=== PATIENT | male | born 2000 | race African-American/Black ===

== ENCOUNTER 2021-09-28 19:10 | Inpatient (IN) | payer OTHER ==
[2021-09-28 22:17] LABS: BASO % 0.3 % (0-2.0); EOS % 1.1 % (0-4.5); HEMATOCRIT 35.5 % (35.4-49); HEMOGLOBIN 11.1 GM/dL (11.7-16.9); LYMPH % 18.6 % (8-40); MCHC 31.3 g/dl (32.0-35.9); MEAN CELL VOLUME 76.8 fl (80-96); MEAN PLT VOLUME 7.3 fl (7.5-11.1); MONO % 5.1 % (3.8-10.2); NEUT % 74.9 % (42.8-82.8); PLATELET COUNT 553 10^3/uL (134-434); RBC 4.62 M/mm3 (4.00-5.60); RDW 18.1 % (11.9-15.9)
[2021-09-28 22:19] LABS: EPI CELLS >36 /uL (0-25.1); HYALINE CASTS 225 /uL (0-3.1); PH,URINE 8.5 (5.0-8.0); URINE APPEARANCE TURBID; URINE BACTERIA 7552 /uL (0-1359); URINE BILIRUBIN NEGATIVE (NEGATIVE); URINE COLOR YELLOW; URINE GLUCOSE (UA) NEGATIVE (NEGATIVE); URINE KETONE NEGATIVE (NEGATIVE); URINE LEUK ESTERASE 3+ (NEGATIVE); URINE NITRITE POSITIVE (NEGATIVE); URINE PROTEIN 2+ (NEGATIVE); URINE WBC 13008 /uL (0-25.8)
[2021-09-28] MEDS ORDERED: VANCOMYCIN 1 GM in D5W (PRE-DOCKED) 1,000 MG/250 ML IVPB ONE (22:31)
[2021-09-28] MEDS ORDERED: PIPERACILLIN/TAZOB 4.5 GM 4.5 GM in DEXTROSE 5%-WATER 100 ML IVPB ONE (22:31)
[2021-09-28 22:33] LABS: BLOOD UREA NITROGEN 12.8 mg/dL (7-18)
[2021-09-28 22:36] LABS: CREATININE 0.4 mg/dL (0.55-1.3)
[2021-09-28 22:37] LABS: TOT PROT 10.3 g/dl (6.4-8.2)
[2021-09-28 22:38] LABS: BILIRUBIN,TOTAL 0.3 mg/dL (0.2-1)
[2021-09-28 22:56] LABS: URINE CRYSTALS MANY /hpf; URINE RBC 499.8 /uL (0-23.9); YEAST NONE SEEN (NEGATIVE)
[2021-09-28 23:51] LABS: INR 1.22 (0.83-1.09); PROTHROMBIN TIME (PATIENT) 14.1 SEC (9.7-13.0)
[2021-09-28 23:54] LABS: ACTIVATED PTT 34.8 SECONDS (25.2-36.5)
[2021-09-29] MEDS ORDERED: PIPERACILLIN/TAZOB 4.5 GM 4.5 GM/100 ML BAG IVPB ONE (01:48)
[2021-09-29] MEDS ORDERED: VANCOMYCIN 1 GRAM (PRE-DOCKED) 1,000 MG/250 ML BAG IVPB ONE (01:49)
[2021-09-29 07:58] LABS: BASO % 0.6 % (0-2.0); EOS % 1.8 % (0-4.5); HEMATOCRIT 31.1 % (35.4-49); HEMOGLOBIN 9.8 GM/dL (11.7-16.9); LYMPH % 27.9 % (8-40); MCH 24.3 pg (25.7-33.7); MCHC 31.7 g/dl (32.0-35.9); MEAN CELL VOLUME 76.8 fl (80-96); MEAN PLT VOLUME 7.2 fl (7.5-11.1); MONO % 6.1 % (3.8-10.2); NEUT % 63.6 % (42.8-82.8); PLATELET COUNT 519 10^3/uL (134-434); RBC 4.05 M/mm3 (4.00-5.60); RDW 17.1 % (11.9-15.9); WHITE BLOOD COUNT 10.1 K/mm3 (4.0-10.0)
[2021-09-29 08:14] LABS: CALCIUM 8.8 mg/dL (8.5-10.1)
[2021-09-29 08:15] LABS: ALBUMIN 2.6 g/dl (3.4-5.0); BLOOD UREA NITROGEN 9.1 mg/dL (7-18)
[2021-09-29 08:18] LABS: CREATININE 0.4 mg/dL (0.55-1.3); PHOSPHOROUS 3.6 mg/dL (2.5-4.9)
[2021-09-29 08:19] LABS: BILIRUBIN,TOTAL 0.3 mg/dL (0.2-1)
[2021-09-29] MEDS ORDERED: DEXTROSE 5%-WATER - 50 ML IVPB ONE (12:12)
[2021-09-29] MEDS ORDERED: cefTRIAXone SODIUM 1 GM VIAL ONE (12:12)
[2021-09-29] MEDS: ENOXAPARIN NA (PORCINE) 40 MG/0.4 ML DISP.SYRIN SQ SCH (12:36)
[2021-09-29] MEDS: CEFTRIAXONE 1 GM in DEXTROSE 5%-WATER - 50 ML IVPB SCH (12:39)
[2021-09-29] MEDS ORDERED: SENNOSIDES 8.6MG TABLET (FP) PO PRN (16:06)
[2021-09-29] MEDS ORDERED: POLYETHYLENE GLYCOL (HEALTHYLAX) 3350 17 GM PACKET PO PRN (16:06)
[2021-09-29] MEDS ORDERED: ACETAMINOPHEN 325 MG TABLET (FP) PO PRN (16:58)
[2021-09-29] MEDS: SODIUM CHLORIDE 1,000 ML IV SCH (18:46)
[2021-09-29] MEDS: AMINO ACIDS/PROTEIN HYDROLYS 30 ML LIQUID.PKT PO SCH (18:47)
[2021-09-30] MEDS: AMINO ACIDS/PROTEIN HYDROLYS 30 ML LIQUID.PKT PO SCH ×3 (09:08→17:09)
[2021-09-30 09:45] LABS: BASO % 0.3 % (0-2.0); EOS % 2.7 % (0-4.5); HEMATOCRIT 26.9 % (35.4-49); HEMOGLOBIN 8.3 GM/dL (11.7-16.9); MCH 23.9 pg (25.7-33.7); MCHC 30.9 g/dl (32.0-35.9); MEAN CELL VOLUME 77.3 fl (80-96); MEAN PLT VOLUME 7.7 fl (7.5-11.1); MONO % 9.2 % (3.8-10.2); NEUT % 60.8 % (42.8-82.8); PLATELET COUNT 445 10^3/uL (134-434); RBC 3.48 M/mm3 (4.00-5.60); RDW 17.1 % (11.9-15.9); WHITE BLOOD COUNT 8.8 K/mm3 (4.0-10.0)
[2021-09-30 09:59] LABS: CALCIUM 8.3 mg/dL (8.5-10.1)
[2021-09-30 10:00] LABS: ALBUMIN 2.2 g/dl (3.4-5.0); BLOOD UREA NITROGEN 8.5 mg/dL (7-18); MAGNESIUM 1.9 mg/dL (1.8-2.4)
[2021-09-30 10:02] LABS: CREATININE 0.2 mg/dL (0.55-1.3)
[2021-09-30 10:03] LABS: PHOSPHOROUS 3.2 mg/dL (2.5-4.9)
[2021-09-30 10:04] LABS: TOT PROT 7.5 g/dl (6.4-8.2)
[2021-09-30] MEDS ORDERED: cefTRIAXone SODIUM 1 GM VIAL ONE (10:12)
[2021-09-30] MEDS ORDERED: DEXTROSE 5%-WATER - 50 ML IVPB ONE (10:12)
[2021-09-30] MEDS: ZINC SULFATE 220 MG CAPSULE (FP) PO SCH (10:15)
[2021-09-30] MEDS: MULTIVITAMINS (DAILY MVI) TABLET (FP) PO SCH (10:16)
[2021-09-30] MEDS: ASCORBIC ACID 500 MG TABLET (FP) PO SCH (10:16)
[2021-09-30] MEDS: ENOXAPARIN NA (PORCINE) 40 MG/0.4 ML DISP.SYRIN SQ SCH (10:16)
[2021-09-30] MEDS: CEFTRIAXONE 1 GM in DEXTROSE 5%-WATER - 50 ML IVPB SCH (10:16)
[2021-09-30 10:17] LABS: BILIRUBIN,TOTAL 0.4 mg/dL (0.2-1)
[2021-09-30] MEDS: SODIUM CHLORIDE 1,000 ML IV SCH (17:13)
[2021-10-01] MEDS: SODIUM CHLORIDE 1,000 ML IV SCH ×2 (05:29→17:32)
[2021-10-01] MEDS: AMINO ACIDS/PROTEIN HYDROLYS 30 ML LIQUID.PKT PO SCH ×3 (08:53→17:33)
[2021-10-01] MEDS ORDERED: SULFAMETHOXAZOLE/TRIMETHOPRIM 800MG/160MG D.S. TABLET PO SCH (10:32)
[2021-10-01 10:37] LABS: HEMATOCRIT 28.6 % (35.4-49); HEMOGLOBIN 8.8 GM/dL (11.7-16.9); MCH 23.9 pg (25.7-33.7); MCHC 30.8 g/dl (32.0-35.9); MEAN CELL VOLUME 77.6 fl (80-96); MEAN PLT VOLUME 7.4 fl (7.5-11.1); PLATELET COUNT 451 10^3/uL (134-434); RBC 3.68 M/mm3 (4.00-5.60); RDW 16.9 % (11.9-15.9); WHITE BLOOD COUNT 6.1 K/mm3 (4.0-10.0)
[2021-10-01] MEDS: CEFTRIAXONE 1 GM in DEXTROSE 5%-WATER - 50 ML IVPB SCH (10:46)
[2021-10-01] MEDS ORDERED: AMOX TR/POT CLAV 875MG/125MG TABLETS (FP) PO SCH ×2 (10:48→17:30)
[2021-10-01] MEDS: FERROUS SO4 325 MG TABLET (FP) PO SCH (10:56)
[2021-10-01] MEDS: MULTIVITAMINS (DAILY MVI) TABLET (FP) PO SCH (10:56)
[2021-10-01] MEDS: ASCORBIC ACID 500 MG TABLET (FP) PO SCH (10:56)
[2021-10-01] MEDS: ENOXAPARIN NA (PORCINE) 40 MG/0.4 ML DISP.SYRIN SQ SCH (10:56)
[2021-10-01] MEDS: ZINC SULFATE 220 MG CAPSULE (FP) PO SCH (10:57)
[2021-10-01 11:05] LABS: CHLORIDE 103 mmol/L (98-107); SODIUM 139 mmol/L (136-145)
[2021-10-01 11:06] LABS: CALCIUM 8.7 mg/dL (8.5-10.1)
[2021-10-01 11:07] LABS: ALBUMIN 2.2 g/dl (3.4-5.0); ANION GAP 6 MMOL/L (8-16); BLOOD UREA NITROGEN 3.6 mg/dL (7-18); CO2 29 mmol/L (21-32); GLUCOSE,RANDOM 108 mg/dL (74-106); MAGNESIUM 1.9 mg/dL (1.8-2.4)
[2021-10-01 11:10] LABS: CREATININE 0.3 mg/dL (0.55-1.3); PHOSPHOROUS 3.2 mg/dL (2.5-4.9); SGOT/AST 9 U/L (15-37); SGPT/ALT < 6 U/L (13-61)
[2021-10-01 11:11] LABS: BILIRUBIN,TOTAL 0.2 mg/dL (0.2-1); TOT PROT 7.7 g/dl (6.4-8.2)
[2021-10-01 11:13] LABS: ALK PHOS 114 U/L (45-117)
[2021-10-01] MEDS ORDERED: CEFTRIAXONE 1 GM in DEXTROSE 5%-WATER - 50 ML IVPB SCH (11:45)
[2021-10-01] MEDS ORDERED: DEXTROSE 5%-WATER - 50 ML IVPB ONE (12:56)
[2021-10-01] MEDS ORDERED: cefTRIAXone SODIUM 1 GM VIAL ONE (12:56)
[2021-10-02] MEDS: AMINO ACIDS/PROTEIN HYDROLYS 30 ML LIQUID.PKT PO SCH ×3 (08:34→18:03)
[2021-10-02 08:55] LABS: HEMATOCRIT 26.7 % (35.4-49); HEMOGLOBIN 8.6 GM/dL (11.7-16.9); MCH 24.3 pg (25.7-33.7); MCHC 32.1 g/dl (32.0-35.9); MEAN CELL VOLUME 75.6 fl (80-96); MEAN PLT VOLUME 6.9 fl (7.5-11.1); PLATELET COUNT 490 10^3/uL (134-434); RBC 3.54 M/mm3 (4.00-5.60); RDW 17.2 % (11.9-15.9); WHITE BLOOD COUNT 4.9 K/mm3 (4.0-10.0)
[2021-10-02 09:15] LABS: ALBUMIN 2.2 g/dl (3.4-5.0); CALCIUM 8.5 mg/dL (8.5-10.1)
[2021-10-02 09:16] LABS: BLOOD UREA NITROGEN 4.5 mg/dL (7-18)
[2021-10-02 09:18] LABS: PHOSPHOROUS 3.1 mg/dL (2.5-4.9)
[2021-10-02 09:19] LABS: CREATININE 0.2 mg/dL (0.55-1.3)
[2021-10-02 09:20] LABS: BILIRUBIN,TOTAL 0.2 mg/dL (0.2-1); TOT PROT 7.8 g/dl (6.4-8.2)
[2021-10-02] MEDS: AMOX TR/POT CLAV 875MG/125MG TABLETS (FP) PO SCH ×2 (09:56→18:04)
[2021-10-02] MEDS: ZINC SULFATE 220 MG CAPSULE (FP) PO SCH (09:56)
[2021-10-02] MEDS: MULTIVITAMINS (DAILY MVI) TABLET (FP) PO SCH (09:57)
[2021-10-02] MEDS: ASCORBIC ACID 500 MG TABLET (FP) PO SCH (09:57)
[2021-10-02] MEDS: ENOXAPARIN NA (PORCINE) 40 MG/0.4 ML DISP.SYRIN SQ SCH (09:57)
[2021-10-02] MEDS ORDERED: SULFAMETHOXAZOLE/TRIMETHOPRIM 800MG/160MG D.S. TABLET PO SCH (10:00)
[2021-10-02 14:08] VITALS: BMI 15.0
[2021-10-02] MEDS: SODIUM CHLORIDE 1,000 ML IV SCH (18:03)
[2021-10-03] MEDS: MULTIVITAMINS (DAILY MVI) TABLET (FP) PO SCH (10:43)
[2021-10-03] MEDS: ZINC SULFATE 220 MG CAPSULE (FP) PO SCH (10:43)
[2021-10-03] MEDS: ASCORBIC ACID 500 MG TABLET (FP) PO SCH (10:43)
[2021-10-03] MEDS: ENOXAPARIN NA (PORCINE) 40 MG/0.4 ML DISP.SYRIN SQ SCH (10:43)
[2021-10-03] MEDS: AMOX TR/POT CLAV 875MG/125MG TABLETS (FP) PO SCH ×2 (10:43→18:00)
[2021-10-03] MEDS: AMINO ACIDS/PROTEIN HYDROLYS 30 ML LIQUID.PKT PO SCH ×3 (10:44→18:00)
[2021-10-04] MEDS: AMOX TR/POT CLAV 875MG/125MG TABLETS (FP) PO SCH ×2 (08:20→17:22)
[2021-10-04] MEDS: AMINO ACIDS/PROTEIN HYDROLYS 30 ML LIQUID.PKT PO SCH ×4 (08:20→17:22)
[2021-10-04] MEDS: ENOXAPARIN NA (PORCINE) 40 MG/0.4 ML DISP.SYRIN SQ SCH (09:13)
[2021-10-04] MEDS: ASCORBIC ACID 500 MG TABLET (FP) PO SCH (09:13)
[2021-10-04] MEDS: MULTIVITAMINS (DAILY MVI) TABLET (FP) PO SCH (09:13)
[2021-10-04] MEDS: ZINC SULFATE 220 MG CAPSULE (FP) PO SCH (09:13)
[2021-10-04] MEDS: FERROUS SO4 325 MG TABLET (FP) PO SCH (09:15)
[2021-10-04 09:46] LABS: HEMATOCRIT 31.5 % (35.4-49); HEMOGLOBIN 9.8 GM/dL (11.7-16.9); MCH 23.6 pg (25.7-33.7); MCHC 31.1 g/dl (32.0-35.9); MEAN CELL VOLUME 76.1 fl (80-96); MEAN PLT VOLUME 6.9 fl (7.5-11.1); PLATELET COUNT 549 10^3/uL (134-434); RBC 4.14 M/mm3 (4.00-5.60); RDW 17.5 % (11.9-15.9); WHITE BLOOD COUNT 5.9 K/mm3 (4.0-10.0)
[2021-10-04 10:19] LABS: BLOOD UREA NITROGEN 7.4 mg/dL (7-18)
[2021-10-04 10:22] LABS: CREATININE 0.3 mg/dL (0.55-1.3)
[2021-10-05 05:45] VITALS: BP 110/62; PULSE 97; TEMP 98
== END 2021-10-05 05:55 | disposition home or self-care (01) | DRG 463 ==
LOC: JER 19:10 → JERBED 19:56 → J8W 09-29 08:41
PROVIDERS: ADMIT Internal Medicine; ATTEND Internal Medicine
DX: N39.0 Urinary tract infection, site not specified (principal); L89.153 Pressure ulcer of sacral region, stage 3; B96.4 Proteus (mirabilis) (morganii) as the cause of diseases classified elsewhere; E43 Unspecified severe protein-calorie malnutrition; R64 Cachexia; Z68.1 Body mass index [BMI] 19.9 or less, adult; G82.20 Paraplegia, unspecified; E88.09 Other disorders of plasma-protein metabolism, not elsewhere classified; R32 Unspecified urinary incontinence; R00.0 Tachycardia, unspecified; E86.0 Dehydration; D50.9 Iron deficiency anemia, unspecified; S30.812A Abrasion of penis, initial encounter; L89.893 Pressure ulcer of other site, stage 3; L89.523 Pressure ulcer of left ankle, stage 3; Z74.01 Bed confinement status; X58.XXXA Exposure to other specified factors, initial encounter; Y92.89 Other specified places as the place of occurrence of the external cause
CPT/HCPCS: 36415; 71045-TC-FY; 80048; 80053; 81003; 82607; 82728; 82747; 83540; 83550; 83605; 83735; 84100; 84155; 84165; 85014; 85025; 85027; 85610; 85730; 87040; 87086; 87186; 87536; 93005; 93010; 93971-TC; 99285-25; C9803-CS; U0003; U0005

== ENCOUNTER 2022-04-13 19:54 | Emergency (ER) | payer OTHER ==
[2022-04-13 20:32] VITALS: RESP 18; BMI 16.7
[2022-04-13 21:35] LABS: BASO % 0.5 % (0-2.0); EOS % 1.7 % (0-4.5); HEMATOCRIT 41.1 % (35.4-49); HEMOGLOBIN 12.9 GM/dL (11.7-16.9); LYMPH % 39.7 % (8-40); MCH 25.3 pg (25.7-33.7); MCHC 31.4 g/dl (32.0-35.9); MEAN CELL VOLUME 80.6 fl (80-96); MONO % 8.6 % (3.8-10.2); NEUT % 49.5 % (42.8-82.8); PLATELET COUNT 422 10^3/uL (134-434); RDW 15.7 % (11.9-15.9); WHITE BLOOD COUNT 6.3 K/mm3 (4.0-10.0)
[2022-04-13 21:43] LABS: INR 1.19 (0.83-1.09); PROTHROMBIN TIME (PATIENT) 13.7 SEC (9.7-13.0)
[2022-04-13 21:46] LABS: ACTIVATED PTT 32.1 SECONDS (25.2-36.5)
[2022-04-13 22:23] LABS: CHLORIDE 104 mmol/L (98-107); SODIUM 140 mmol/L (136-145)
[2022-04-13 22:25] LABS: CALCIUM 9.1 mg/dL (8.5-10.1)
[2022-04-13 22:26] LABS: ALBUMIN 3.1 g/dl (3.4-5.0); BLOOD UREA NITROGEN 13.2 mg/dL (7-18); CO2 30 mmol/L (21-32); GLUCOSE,RANDOM 85 mg/dL (74-106)
[2022-04-13 22:29] LABS: CREATININE 0.5 mg/dL (0.55-1.3)
[2022-04-13 22:30] LABS: TOT PROT 8.8 g/dl (6.4-8.2)
[2022-04-13 22:31] LABS: ALK PHOS 132 U/L (45-117)
[2022-04-13 22:54] LABS: ANION GAP 6 MMOL/L (8-16); SGOT/AST 137 U/L (15-37); SGPT/ALT 21 U/L (13-61)
[2022-04-13 23:41] LABS: BILIRUBIN,TOTAL < 2.0 mg/dL (0.2-1)
[2022-04-14 03:41] VITALS: BP 105/65; PULSE 90; TEMP 97.9
== END 2022-04-14 04:33 | disposition home or self-care (01) ==
LOC: JER 19:54
DX: R06.09 Other forms of dyspnea (principal); G82.20 Paraplegia, unspecified
CPT/HCPCS: 0241U-QW; 36415; 71046-TC-FY; 71275-TC; 80053; 82962; 84132; 84484; 85025; 85610; 85730; 93005; 93010; 99285-25; Q9967